=== PATIENT | female | born 1940 | race African-American/Black ===

== ENCOUNTER → 2016-09-16 | Outpatient (CLI) | payer MEDICARE, OTHER ==
--- NOTE | 2016-09-16 15:12 | Diagnostic Imaging Report ---
Indication: COUGH Technique: One view of the chest Comparison: 12/13/2006 Findings: A band of atelectasis or scarring is seen in the left midlung. There is some apical pleural scarring. Lungs and pleural spaces are otherwise clear. Surgical clips are seen in the right axilla. Impression: No acute process. Findings as noted
== END | disposition home or self-care (01) ==
LOC: RAD 11:26
DX: R05 Cough (principal)
CPT/HCPCS: 71020

== ENCOUNTER 2017-04-01 09:24 | Outpatient (CLI) | payer MEDICARE, OTHER ==
--- NOTE | 2017-04-01 13:07 | Diagnostic Imaging Report ---
Indication: COUGH, shortness of breath Technique: Two views of the chest Comparison: 09/16/2016 Findings: Sterile left perihilar scarring and evidence of parenchymal volume loss, unchanged The lungs and pleural spaces are otherwise clear. The heart size is normal. Aorta is tortuous and ectatic. The top of an abdominal aortic endograft is noted, not evident previously. There are degenerative changes of the thoracic spine. Surgical clips are seen in the right axilla. Impression: No acute process. Findings as noted
== END 2017-04-01 11:24 | disposition home or self-care (01) ==
LOC: RAD 09:24
DX: R05 Cough (principal); R06.02 Shortness of breath; M47.894 Other spondylosis, thoracic region
CPT/HCPCS: 71020

== ENCOUNTER 2017-09-15 11:07 | Outpatient (CLI) | payer MEDICARE, OTHER ==
--- NOTE | 2017-09-15 12:24 | Diagnostic Imaging Report ---
Indication: Cough Technique: 2 views of the chest Comparison: 04/01/2017 Findings: Some linear scar and surgical ney are again seen in the left perihilar and suprahilar region. There is associated left lung volume loss with shift of the mediastinum to the left. The lungs and pleural spaces are otherwise clear. Surgical clips are seen in the right axilla. The aorta is tortuous and ectatic. The top of abdominal aortic endograft is again demonstrated Impression: No acute process Postsurgical changes, as described
== END 2017-09-15 13:07 | disposition home or self-care (01) ==
LOC: RAD 11:07
DX: R05 Cough (principal)
CPT/HCPCS: 71046

== ENCOUNTER 2018-02-28 10:45 | Outpatient (RCR) | payer MEDICARE, OTHER | END 2018-03-03 | disposition home or self-care (01) | LOC: PTY 10:45 | DX: M12.9 Arthropathy, unspecified (principal); M25.561 Pain in right knee | CPT/HCPCS: 97110; 97162; G8978; G8979 ==

== ENCOUNTER 2018-03-16 10:30 | Outpatient (RCR) | payer MEDICARE, OTHER | END 2018-04-02 | disposition home or self-care (01) | LOC: PTY 10:30 | DX: M12.9 Arthropathy, unspecified (principal); M25.561 Pain in right knee ==